=== PATIENT | male | born 1995 ===

== ENCOUNTER 2017-08-07 08:58 | Inpatient (IN) | payer OTHER ==
[~2017-08-07] VITALS: Ht 188 cm; Wt 96.3 kg
[2017-08-07] VITALS (246 sets, daily range): BP systolic 111–134; BP diastolic 58–89; PULSE 66–94; TEMP 97.1–98.9; O2SAT 87–100
[2017-08-07 10:55] LABS: HEMATOCRIT 30.6 % (42.0-52.0); HEMOGLOBIN 10.6 g/dl (13.5-18.0)
[2017-08-07 17:05] LABS: HEMATOCRIT 27.7 % (42.0-52.0); HEMOGLOBIN 9.5 g/dl (13.5-18.0)
[2017-08-07 23:09] LABS: HEMATOCRIT 26.6 % (42.0-52.0); HEMOGLOBIN 9.2 g/dl (13.5-18.0)
[2017-08-08 00:01] VITALS: BP 107/57; PULSE 64; TEMP 97.9
[2017-08-08 03:58] VITALS: BP 119/62; PULSE 64; TEMP 97.9
[2017-08-08 06:40] LABS: BASO # 0.1 (0.0-0.2); EOS # 0.2 (0.0-0.7); EOS % 3.9 % (0-4.0); GRAN # 2.8 (1.4-6.5); GRAN % 47.7 % (42.2-75.2); HEMATOCRIT 25.2 % (42.0-52.0); HEMOGLOBIN 8.6 g/dl (13.5-18.0); LYMPH # 2.4 (1.2-3.4); LYMPH % 40.8 % (20.0-51.0); MEAN CELL VOLUME 85 fl (80.0-100.0); MEAN CORPUSCULAR HEMOGLOBIN 29 pg (27.0-31.0); MEAN CORPUSCULAR HGB CONC 34 g/dl (33.0-37.0); MEAN PLATELET VOLUME 10.2 fl (7.4-10.4); MONO # 0.4 (0.1-0.6); MONO % 6.3 % (1.7-9.3); PLATELET COUNT 182 K/mm3 (130-400); RED BLOOD COUNT 2.95 M/mm3 (4.20-5.60); WHITE BLOOD COUNT 5.8 K/mm3 (4.8-10.8)
[2017-08-08 07:01] LABS: CALCIUM 8.7 mg/dL (8.4-10.2); CREATININE, serum 1.13 mg/dL (0.66-1.25); POTASSIUM 4.2 mmol/L (3.4-5.0)
[2017-08-08 07:49] VITALS: BP 130/63; PULSE 72; TEMP 97.9
[2017-08-08 11:14] LABS: HEMATOCRIT 27.3 % (42.0-52.0); HEMOGLOBIN 9.3 g/dl (13.5-18.0)
[2017-08-08 11:34] VITALS: BP 127/61; PULSE 69; TEMP 98.1
[2017-08-08] MEDS ORDERED: PRILOSEC 20MG20 MG PO (12:27)
== END 2017-08-08 13:10 | disposition home or self-care (01) | DRG 369 ==
LOC: IMCU 08:58 → ICU 08:59 → MEDICAL 18:00
PROVIDERS: Family Medicine; Internal Medicine Gastroenterology
PROC: 0DB78ZX Excision of Stomach, Pylorus, Via Natural or Artificial Opening Endoscopic, Diagnostic (ICD-10-PCS; principal; 2017-08-07 11:00)
DX: K22.6 Gastro-esophageal laceration-hemorrhage syndrome (principal); D62 Acute posthemorrhagic anemia; K25.7 Chronic gastric ulcer without hemorrhage or perforation
CPT/HCPCS: 99223-AI; 99239; C9113; J2250; J3010; J7030